=== PATIENT | male | born 1965 | race Caucasian/White ===

== ENCOUNTER 2018-02-18 07:45 | Day surgery (SDC) | payer BC ==
[2018-02-18] MEDS ORDERED: Lactated Ringer's 500 ML IV ONE (08:24)
[2018-02-18] MEDS ORDERED: Propofol 10 mg/ml Inj (20 ML) ONE (10:11)
[2018-02-18 11:01] VITALS: TEMP 97.2
[2018-02-18 11:15] VITALS: BP 110/73; PULSE 70; RESP 11; O2SAT 100
== END 2018-02-18 11:30 | disposition home or self-care (01) ==
LOC: H.ENDO 07:45
PROVIDERS: ATTEND Internal Medicine Gastroenterology
DX: Z12.11 Encounter for screening for malignant neoplasm of colon (principal); K64.8 Other hemorrhoids; Z80.0 Family history of malignant neoplasm of digestive organs
CPT/HCPCS: 45378; J2001; J2704; J7120